=== PATIENT | male | born 1950 | race Native Hawaiian/Other Pacific Islander ===

== ENCOUNTER → 2020-02-22 14:10 | Outpatient (CLI) | payer MEDICARE, OTHER, SELFPAY ==
[2020-02-24 09:06] LABS: COVID19 Sendout Not Detected (Not Detect)
== END ==
PROVIDERS: Visit Provider Nurse Practitioner
DX: Z11.59 Encounter for screening for other viral diseases (principal)
CPT/HCPCS: 87635

== ENCOUNTER → 2022-12-08 15:32 | Outpatient (CLI) | payer MEDICARE, OTHER, SELFPAY ==
--- NOTE | 2022-12-08 15:45 | DI.RAD.S_ITS ---
PROCEDURE: XR HAND LT MIN 3V INDICATIONS: Hand pain TECHNIQUE: 3 views of the hand(s) acquired. COMPARISON: None. FINDINGS: Bones: No fractures or dislocations. Carpal bones are normally aligned. No suspicious bony lesions. 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 Subchondral sclerosis and periarticular lucencies are present. Otherwise, scattered IP narrowing. Soft tissues: No suspicious soft tissue calcifications. 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 Areas of subchondral lucency could represent cysts or under appropriate clinical circumstances with correlating laboratory values erosions cannot be excluded. Dictated by: Soila Kim M.D. on 12/08/2022 at 16:05 Approved by: Soila Kim M.D. on 12/08/2022 at 16:05
== END ==
PROVIDERS: Referring Provider Physician Assistant; Visit Provider Physician Assistant
DX: M79.642 Pain in left hand (principal)
CPT/HCPCS: 73130